=== PATIENT | male | born 1990 | race African-American/Black ===

== ENCOUNTER 2021-03-16 10:10 | Inpatient (IN) | payer MEDICAID, OTHER ==
--- NOTE | 2021-03-16 10:52 | ED ---
General Adult HPI - General Chief complaint: Psychiatric Symptoms Stated complaint: mental health Time Seen by Provider: 03/16/21 10:41 Source: EMS Mode of arrival: EMS Limitations: no limitations - History of Present Illness Initial comments: Dictation was produced using [employer] dictation software. please excuse any grammatical, word or spelling errors. Chief Complaint: 30-year-old male presents emergency Department with law enforcement for paranoid behavior History of Present Illness: 30-year-old male who denies any past medical history. He is brought in by law enforcement. Patient allegedly called 911 for concerns of spice in his house. Lungs enforcement agent went to the house to check if there is any suspicious activity did not notice it. Patient explained that he was being spied on. Enforcement ended up bring patient to the emergency room for psychiatric evaluation. Enforcement reports that patient was not coop erative and needed to be coarse to come to the emergency department. Patient states he feels fine and denies any suicidal or homicidal ideation. He does feel like there are people out to get him. The ROS documented in this emergency department record has been reviewed and confirmed by me. Those systems with pertinent positive or negative responses have been documented in the HPI. All other systems are other negative and/or noncontributory. PHYSICAL EXAM: General Impression: Alert and oriented x3, not in acute distress HEENT: Normocephalic atraumatic, extra-ocular movements intact, pupils equal and reactive to light bilaterally, mucous membranes moist. Cardiovascular: Heart regular rate and rhythm Chest: Able to complete full sentences, no retractions, no tachypnea Abdomen: abdomen soft, non-tender, non-distended, no organomegaly Musculoskeletal: Pulses present and equal in all extremities, no peripheral edema Motor: no focal deficits noted Neurological: CN II-XII grossly intact, no focal motor or sensory deficits noted Skin: Intact with no visualized rashes Psych: Normal affect and mood ED course: 30-year-old male brought into the emergency department for paranoid ideation. Vital signs upon arrival are within acceptable limits. Patient vital by EPS and mobile crisis recommend psychiatric inpatient admission. Certification documentation was completed. Patient be admitted to 3 W. - Related Data Home Medications Medication Instructions Recorded Confirmed No Known Home Medications 03/16/21 03/16/21 Allergies Allergy/AdvReac Type Severity Reaction Status Date / Time No Known Allergies Allergy Verified 03/16/21 14:19 Review of Systems ROS Statement: Those systems with pertinent positive or pertinent negative responses have been documented in the HPI. ROS Other: All systems not noted in ROS Statement are negative. Past Medical History Past Medical History: No Reported History Past Surgical History: Orthopedic Surgery Past Psychological History: No Psychological Hx Reported Smoking Status: Current some day smoker Past Alcohol Use History: None Reported Past Drug Use History: Marijuana General Exam Limitations: no limitations Course Vital Signs 03/16/21 10:32 Temperature 98.1 F Pulse Rate 86 Respiratory 16 Rate Blood Pressure 123/84 O2 Sat by Pulse 97 Oximetry Procedures - Restraint - Face to Face Restraint Occurrence 1 Patient's Immediate Situation: Endangers self safety, Endangers others' safety, Endangers staff safety Patient's Reaction to the Intervention: Apprehensive Patient's Medical & Behavioral Condition: Awake, Alert, Follows directions Need to Continue or Terminate Restraint or Seclusion: Continue Face to Face Eval of Restraint Date: 03/16/21 Face to Face Eval of Restraint Time: 10:35 Medical Decision Making - Lab Data Lab Results 03/16/21 Range/Units 14:11 Urine RBC 2 (0-5) /hpf Urine WBC 2 (0-5) /hpf Ur Squamous Epith Cells 3 (0-4) /hpf Urine Mucus Many H (None) /hpf Urine Opiates Screen Not Detected (NotDetected) Ur Oxycodone Screen Detected H (NotDetected) Urine Methadone Screen Not Detected (NotDetected) Ur Propoxyphene Screen Not Detected (NotDetected) Ur Barbiturates Screen Not Detected (NotDetected) U Tricyclic Antidepress Not Detected (NotDetected) Ur Phencyclidine Scrn Not Detected (NotDetected) Ur Amphetamines Screen Detected H (NotDetected) U Methamphetamines Scrn Detected H (NotDetected) U Benzodiazepines Scrn Not Detected (NotDetected) Urine Cocaine Screen Detected H (NotDetected) U Marijuana (THC) Screen Detected H (NotDetected) Disposition Clinical Impression: Psychosis Disposition: ADMITTED IP TO THIS [facility] Condition: Fair Referrals: None,Stated [Primary Care Provider] - 1-2 days
[2021-03-16] MEDS ORDERED: LORazepam 2 MG/ML INJ IM STA (14:44)
[2021-03-16 14:45] LABS: Mucus,Urine Many /hpf; RBC,Urine 2 /hpf (0-5); Squamous Epithelial Cell,Urine 3 /hpf (0-4); WBC,Urine 2 /hpf (0-5)
[2021-03-16] MEDS ORDERED: NICOTINE 21MG/24HR PATCH TRANSDERM STA (14:45)
[2021-03-16 14:46] LABS: Amphetamine Screen,Urine Detected (NotDetected); Barbiturate Screen,Urine Not Detected (NotDetected); Benzodiazepines Screen,Urine Not Detected (NotDetected); Cocaine Screen,Urine Detected (NotDetected); Methadone Screen, Urine Not Detected (NotDetected); Opiate Screen,Urine Not Detected (NotDetected); Oxycodone Screen, Urine Detected (NotDetected); Phencyclidine Screen,Urine Not Detected (NotDetected); Tricyclic Antidepressant,Urine Not Detected (NotDetected); Urn Cannabinoid Scrn Detected (NotDetected)
[2021-03-16 14:58] LABS: Appearance,Urine Cloudy (Clear); Bilirubin,Urine Negative (Negative); Blood,Urine Negative (Negative); Color,Urine Yellow; Glucose,Urine (UA) Negative (Negative); Ketones,Urine Negative (Negative); Leukocyte Esterase,Urine Negative (Negative); Nitrite,Urine Negative (Negative); Protein,Urine 1+ (Negative); Specific Gravity,Urine 1.039 (1.001-1.035)
[2021-03-16] MEDS ORDERED: MAGNESIUM HYDROXIDE 2,400 MG/10 ML CUP PO PRN (16:40)
[2021-03-16] MEDS ORDERED: ACETAMINOPHEN TAB 325 MG TAB PO PRN (16:40)
[2021-03-16] MEDS ORDERED: LORazepam 1 MG TAB PO PRN (16:40)
[2021-03-16] MEDS ORDERED: MAG HYDROX/AL HYDROX/SIMETH 30 ML CUP PO PRN (16:40)
[2021-03-16] MEDS ORDERED: haloperidoL 5 MG TAB PO PRN (16:41)
[2021-03-16] MEDS: LORazepam 2 MG/ML INJ IM PRN (17:34)
[2021-03-16] MEDS: HALOPERIDOL LACTATE 5 MG/ML 1 ML VIAL IM PRN (17:35)
[2021-03-16] MEDS: NICOTINE 21MG/24HR PATCH TRANSDERM SCH (17:55)
--- NOTE | 2021-03-16 22:01 | P.PN ---
Progress Note - Text Progress Note Date: 03/16/21 The patient couldn't be evaluated as he was sedated. Will attempt again tomorrow.
[2021-03-17] MEDS: NICOTINE 21MG/24HR PATCH TRANSDERM SCH (08:48)
[2021-03-17] MEDS: LORazepam 2 MG/ML INJ IM PRN (10:33)
[2021-03-17] MEDS: HALOPERIDOL LACTATE 5 MG/ML 1 ML VIAL IM PRN (10:33)
[2021-03-17] MEDS ORDERED: LORazepam 1 MG TAB PO SCH (13:00)
[2021-03-17] MEDS ORDERED: haloperidoL 5 MG TAB PO SCH (13:00)
[2021-03-17] MEDS ORDERED: HALOPERIDOL LACTATE 5 MG/ML 1 ML VIAL IM SCH (13:00)
[2021-03-17] MEDS ORDERED: LORazepam 2 MG/ML INJ IM SCH (13:00)
[2021-03-17] MEDS ORDERED: HALOPERIDOL LACTATE 5 MG/ML 1 ML VIAL IM PRN ×2 (13:12→14:07)
[2021-03-17] MEDS ORDERED: LORazepam 1 MG TAB PO PRN ×2 (13:12→14:08)
[2021-03-17] MEDS ORDERED: haloperidoL 5 MG TAB PO PRN (13:12)
[2021-03-17] MEDS ORDERED: LORazepam 2 MG/ML INJ IM PRN ×2 (13:12→14:08)
--- NOTE | 2021-03-17 13:28 | P.HP ---
Psychiatric H&P - . H&P Date: 03/17/21 History & Physical: Allergies Allergy/AdvReac Type Severity Reaction Status Date / Time No Known Allergies Allergy Verified 03/16/21 14:19 Vital Signs Temp 98.1 F 03/16/21 10:32 Pulse 86 03/16/21 10:32 Resp 16 03/16/21 10:32 BP 123/84 03/16/21 10:32 Pulse Ox 97 03/16/21 10:32 Intake & Output 03/16/21 03/17/21 03/17/21 18:59 06:59 18:59 Weight 83.915 kg Laboratory Last Values Urine Color Yellow 03/16/21 14:11 Urine Appearance Cloudy (Clear) 03/16/21 14:11 Urine pH 6.0 (5.0-8.0) 03/16/21 14:11 Ur Specific [place] 1.039 (1.001-1.035) H 03/16/21 14:11 Urine Protein 1+ (Negative) H 03/16/21 14:11 Ur Protein Confirm Not Reportable 03/16/21 14:11 Urine Glucose (UA) Negative (Negative) 03/16/21 14:11 Urine Ketones Negative (Negative) 03/16/21 14:11 Urine Blood Negative (Negative) 03/16/21 14:11 Urine Nitrite Negative (Negative) 03/16/21 14:11 Urine Bilirubin Negative (Negative) 03/16/21 14:11 Ur Bilirubin Confirm Not Reportable 03/16/21 14:11 Urine Urobilinogen 4.0 mg/dL (<2.0) 03/16/21 14:11 Ur Leukocyte Esterase Negative (Negative) 03/16/21 14:11 Urine RBC 2 /hpf (0-5) 03/16/21 14:11 Urine WBC 2 /hpf (0-5) 03/16/21 14:11 Ur Squamous Epith Cells 3 /hpf (0-4) 03/16/21 14:11 Urine Mucus Many /hpf (None) H 03/16/21 14:11 Urine Opiates Screen Not Detected (NotDetected) 03/16/21 14:11 Ur Oxycodone Screen Detected (NotDetected) H 03/16/21 14:11 Urine Methadone Screen Not Detected (NotDetected) 03/16/21 14:11 Ur Propoxyphene Screen Not Detected (NotDetected) 03/16/21 14:11 Ur Barbiturates Screen Not Detected (NotDetected) 03/16/21 14:11 U Tricyclic Antidepress Not Detected (NotDetected) 03/16/21 14:11 Ur Phencyclidine Scrn Not Detected (NotDetected) 03/16/21 14:11 Ur Amphetamines Screen Detected (NotDetected) H 03/16/21 14:11 U Methamphetamines Scrn Detected (NotDetected) H 03/16/21 14:11 U Benzodiazepines Scrn Not Detected (NotDetected) 03/16/21 14:11 Urine Cocaine Screen Detected (NotDetected) H 03/16/21 14:11 U Marijuana (THC) Screen Detected (NotDetected) H 03/16/21 14:11 Coronavirus (PCR) Not Detected (Not Detectd) 03/16/21 14:45 03/17/21 13:27 IDENTIFYING DATA: Patient is a , unemployed, 30-year-old -[place] male who was admitted to the psychiatric unit under petition and certificate for psychosis. HPI: Patient presented to the hospital on 03/16/20 on presentation emergency department, the patient was presenting as hyperverbal and tangential to the EPS nurse. He reported "I learned about some new tech and I compared to the stuff in my home and it matched." The patient expressed significant concern that there is surveillance equipment in his home that are spying on him. The petition was filled out by a transit authority police officer who wrote "patient has complained for multiple days that his house is bugged with radio transmitters, cameras, and various monitoring devices." Initial clinical certificate was filled out in the emergency department as the patient continued to display significant symptoms of paranoia. Upon evaluation the psychiatric unit, the patient continues to endorse significant symptoms of psychosis. He reports that he is extremely concerned about the surveillance equipment as well as being spied on in his new home. He reports that there are screws and switches on the valladares that are actually surveillance equipment. The patient is expressing a strong desire for discharge and is initially hesitant to receive any medications. He became very agitated after attempting to elope the unit and a Mr. winchester was called. Patient was able to de-escalate and was agreeable to taking IM Haldol and Ativan to calm down. Since then, the patient has been sedated and sleeping in his room. Collateral information was provided by the patient's Izzy after the patient signed a release of information for her. Izzy reports that the patient began experiencing psychotic symptoms since this past Monday. She reports that this is a new behavior and new presentation for this patient. She states that he has otherwise not expressed any significant psychiatric pathology. She reports that he has never been presenting as depressed, bipolar, or psychotic in the past. She does report that he has a history of posttraumatic stress disorder after being incarcerated in the past. She does express that the patient has engaged in marijuana use but is uncertain of any other drug use. Review of the patient's chart reveals that the patient has tested positive for multiple substances including oxycodone, methamphetamines, amphetamines, cocaine, and marijuana. Upon discussion with the patient earlier this morning, he denied any methamphetamine or amphetamine use. He did admit to using cocaine and marijuana only. PAST PSYCHIATRIC HISTORY: Patient and both report that the patient has no significant psychiatric history except for PTSD. Patient denies any previous psychiatric medications. Patient denies any previous psychiatric hospitalizations. Patient denies any psychiatric outpatient follow-up. Patient denies any history of suicide attempts in the past. PMH: Past Medical History: No Reported History Past Surgical History: Orthopedic Surgery Past Psychological History: No Psychological Hx Reported Smoking Status: Current some day smoker Past Alcohol Use History: None Reported Past Drug Use History: Marijuana ALLERGIES: NO KNOWN DRUG ALLERGIES CHEMICAL DEPENDENCY HISTORY: UDS was positive for oxycodone, amphetamines, methamphetamine, cocaine, and marijuana. Patient admits to marijuana and cocaine use. He does not report any other drug use. FAMILY PSYCHIATRIC/SUBSTANCE USE HISTORY: No reported family psychiatric history. SOCIAL HISTORY: Patient is currently employed and works at his 's business. He is currently ever since 2018 to his Izzy, and has 5 stepchildren. He currently lives with his . He was born and raised in [place] [facility]. MENTAL STATUS EXAM: General Appearance: Patient appears to be stated age is alert, directable, and intermittently cooperative. Patient appears to have with fair hygiene and grooming. Thin build with multiple tattoos. Behavior: Patient presents with elevated psychomotor activity. Eye contact is appropriate. Speech: Patient's speech is rapid in rate but with otherwise normal volume and tone. Mood/Affect: Patient reports their mood is "I'm not mentally ill." Affect is scared and desperate. Suicidality/Homicidality: Patient denies any suicidal or homicidal ideation, intention, and/or plan. Perceptions: Patient denies any visual hallucinations and denies any auditory hallucinations Though content/process: The patient endorses significant delusional thoughts of paranoia and surveillance. Thought process with loose associations but is otherwise linear and goal-directed. Memory and concentration: AOX3, grossly intact for the purposes of this session. Can spell "WORLD" backwards Judgment and insight: poor STRENGTHS/WEAKNESSES: Strength is that the patient has a supportive family and is in relatively good health with no significant psychiatric history prior to this admission. Furthermore, the patient's psychotic symptoms are very acute in onset and likely secondary to substance abuse and not underlying schizophrenia/schizoaffective disorder. Weakness is that patient engages in polysubstance abuse. INTELLECT: average IMPRESSIONS: Acute psychosis Cannabis use disorder Cocaine use disorder PLAN: -Patient is admitted under involuntary status to MHU for stabilization of psychiatric symptoms and safety. Patient is too sedated at this time to engage in discussion over voluntary admission. We will offer voluntary admission once the patient is more arousable this evening. If he refuses to sign, a second certification was completed and along with petition will be filed for court. -Medications : Will start patient on Risperdal 1 mg by mouth twice a day for management of psychosis. -Ativan and Haldol PRN for agitation/aggression. We will decrease to 3 mg Haldol and 1 mg ativan due to concerns for oversedation. -Patient was counselled on substance abuse and desired to cut back on use -Patient was informed of the risks, benefits and side effects of the medication. -NRT - nicotine patch -SW on board for discharge planning. Encourage patient to participate in groups to work on coping skills. 03/17/21 13:28 03/17/21 14:09
[2021-03-17] MEDS ORDERED: haloperidoL 1 MG TAB PO PRN (14:07)
[2021-03-17] MEDS: risperiDONE 1 MG TAB PO SCH (22:04)
--- NOTE | 2021-03-18 02:01 | P.PN ---
Progress Note - Text Progress Note Date: 03/18/21 The patient refused to answer questions or be examined. Will attempt again tomorrow.
[2021-03-18] MEDS: NICOTINE 21MG/24HR PATCH TRANSDERM SCH (07:55)
[2021-03-18] MEDS: risperiDONE 1 MG TAB PO SCH (07:58)
--- NOTE | 2021-03-18 10:05 | P.PN ---
Progress Note - Text Progress Note Date: 03/18/21 Interval History: Patient was seen resting in bed and was directable and agreeable to speak with the job specification writer. Family, the patient is expressing that he is feeling better. He is currently reporting that he just feels tired. He is not reporting any suicidal or homicidal ideation, intention, and/or plan. He is not reporting any auditory or visual hallucinations. The patient is not expressing any paranoia or concern today. He has been adherent with his medications and is not reporting any significant side effects at this time. The patient does admit to drug use prior to this admission and acknowledges that he needs to stop drugs in order to prevent psychotic episodes such as this. He is agreeable to staying for another day. He reports that he spoke with his during visiting hours yesterday and things went well. Mental Status Exam: General Appearance: Patient appears to be stated age is alert, directable, and cooperative. Behavior: Patient is calmly lying down in bed without any agitated behavior. Speech: Patient's speech is fluent and nonpressured. Nonspontaneous. Low in volume. Mood/Affect: Mood is improving mildly, affect is congruent and constricted. Slightly somnolent. Suicidality/Homicidality: Patient denies having any suicidal or homicidal ideation intent or plan. Perceptions: Patient denies any visual hallucinations and denies any auditory hallucinations Though content/process: There is no evidence of any delusional thought content and thought process is linear and goal-directed. Memory and concentration: AOX3, grossly intact for the purposes of this session Judgment and insight: Improving mildly Vital Signs Temp 98.1 F 03/16/21 10:32 Pulse 86 03/16/21 10:32 Resp 16 03/16/21 10:32 BP 123/84 03/16/21 10:32 Pulse Ox 97 03/16/21 10:32 Assessment Acute psychosis Cannabis use disorder Cocaine use disorder Rule out methamphetamine abuse Plan: -Patient continues to meet criteria for inpatient psychiatric admission for symptom stabilization and safety. Patient has signed adult voluntary form and medication consent and was placed in patient's chart. -Medications: Due to concerns for over sedation, we will decrease Risperdal to 0.5 mg by mouth twice a day for management of psychosis. -When necessary Ativan and Haldol for agitation/aggression. -NRT - nicotine patch -SW on board for discharge planning. Encouraged the patient to participate in milieu.
[2021-03-18] MEDS: risperiDONE 0.5 MG TAB PO SCH (17:09)
[2021-03-18] MEDS ORDERED: diphenhydrAMINE 25 MG CAP PO STA (17:18)
[2021-03-19 06:41] VITALS: BP 109/65; PULSE 82; RESP 15; TEMP 98.2
[2021-03-19] MEDS: risperiDONE 0.5 MG TAB PO SCH (08:54)
[2021-03-19] MEDS: NICOTINE 21MG/24HR PATCH TRANSDERM SCH (08:55)
--- NOTE | 2021-03-19 10:57 | P.DS ---
Providers Date of admission: 03/16/21 16:33 Expected date of discharge: 03/19/21 Attending physician: Clark Heath MD Consults: 03/16/21 16:40 Consult Physician Routine Consulting Provider: Shorty Physician Consult Reason/Comments: H&P and medical Do you want consulting provider notified?: Yes Primary care physician: Stated None - Discharge Diagnosis(es) (1) Acute psychosis Current Visit: Yes Status: Acute Priority: High (2) Cannabis abuse Current Visit: Yes Status: Chronic Priority: Medium (3) Cocaine use disorder Current Visit: Yes Status: Chronic Priority: Medium Hospital Course: Admission HPI: Patient is a , unemployed, 30-year-old -[place]ian male who was admitted to the psychiatric unit under petition and certificate for psychosis. Patient presented to the hospital on 03/16/20 on presentation emergency department, the patient was presenting as hyperverbal and tangential to the EPS nurse. He reported "I learned about some new tech and I compared to the stuff in my home and it matched." The patient expressed significant concern that there is surveillance equipment in his home that are spying on him. The petition was filled out by a mounted police officer who wrote "patient has complained for multiple days that his house is bugged with radio transmitters, cameras, and various monitoring devices." Initial clinical certificate was filled out in the emergency department as the patient continued to display significant symptoms of paranoia. Upon evaluation the psychiatric unit, the patient continues to endorse significant symptoms of psychosis. He reports that he is extremely concerned about the surveillance equipment as well as being spied on in his new home. He reports that there are screws and switches on the valladares that are actually surveillance equipment. The patient is expressing a strong desire for discharge and is initially hesitant to receive any medications. He became very agitated after attempting to elope the unit and a Mr. winchester was called. Patient was able to de-escalate and was agreeable to taking IM Haldol and Ativan to calm down. Since then, the patient has been sedated and sleeping in his room. Collateral information was provided by the patient's Izzy after the patient signed a release of information for her. Izzy reports that the patient began experiencing psychotic symptoms since this past Monday. She reports that this is a new behavior and new presentation for this patient. She states that he has otherwise not expressed any significant psychiatric pathology. She reports that he has never been presenting as depressed, bipolar, or psychotic in the past. She does report that he has a history of posttraumatic stress disorder after being incarcerated in the past. She does express that the patient has engaged in marijuana use but is uncertain of any other drug use. Review of the patient's chart reveals that the patient has tested positive for multiple substances including oxycodone, methamphetamines, amphetamines, cocaine, and marijuana. Upon discussion with the patient earlier this morning, he denied any methamphetamine or amphetamine use. He did admit to using cocaine and marijuana only. Patient and both report that the patient has no significant psychiatric history except for PTSD. Patient denies any previous psychiatric medications. Patient denies any previous psychiatric hospitalizations. Patient denies any psychiatric outpatient follow-up. Patient denies any history of suicide attempts in the past. Hospital course: Upon admission to the unit patient was initially presenting as paranoid, afraid, and confrontational. Patient was however directable and agreeable to commence treatment. Patient got along well with other patients on the unit and followed unit protocol. Patient was compliant with the medications and denied any side effects throughout hospital course. Patient required a Mr. winchester response (staff safety response with a show of force). He eventually calmed down and was agreeable to taking the Haldol and Ativan. Patient subsequently calmed down. The patient was quite sedated from the administration of Haldol and Ativan. He did sign voluntarily into the psychiatric unit. He was started on a regimen of Risperdal 1 mg by mouth twice a day for management of psychosis. Over the course the hospital physician, the patient continued to be quite sedated with his medication regimen of Risperdal and Haldol and Ativan as needed. These medications were tapered in response to his sedation. The patient displayed significant improvement in regards to his psychotic symptoms and became more cooperative with staff and was much more friendly on approach. The patient was adherent with his medications and reported some heaviness of the tongue which disappeared after the Risperdal was tapered. On the day of discharge, the patient is not reporting any suicidal or homicidal ideation, intention, and/or plan. He is not reporting any auditory or visual hallucinations. He is denying any paranoia or other delusions. The patient is adherent with his medications and not reporting any significant side effects at this time. The patient acknowledges that substances may have contributed to his psychotic symptoms and was advised to abstain from all substances including alcohol, marijuana, and other illicit drugs including meth amphetamines, cocaine, and opiates. The patient was offered inpatient substance abuse rehabilitation however he declined. The patient denies any access to firearms or other weapons. The patient was counseled on the medications and the need for regular adherence as well as to follow-up with his outpatient appointments. Prior to discharge, family meeting will be arranged by social media sr strategy manager to answer questions and ensure safety. Mental status exam: General Appearance: Patient appears to be stated age is alert, pleasant, and cooperative. Patient is in no acute distress and has fair hygiene and grooming Behavior: Patient is calmly seated without any agitated behavior. Speech: Patient's speech is fluent and nonpressured. Mood/Affect: Patient reports their mood is "much better", affect is congruent and euthymic to bright. Suicidality/Homicidality: Patient denies having any suicidal or homicidal ideation intent or plan. Perceptions: Patient denies any auditory or visual hallucinations. Though content/process: There is no evidence of any delusional thought content and thought process is linear and goal-directed. Future oriented Memory and concentration: AOX3, grossly intact for the purposes of this session. Can spell "WORLD" backwards correctly. Judgment and insight: Improved with guarded prognosis Vital Signs Temp 98.2 F 03/19/21 06:38 Pulse 82 03/19/21 06:38 Resp 15 03/19/21 06:38 BP 109/65 03/19/21 06:38 Pulse Ox 97 03/16/21 10:32 Impression: Acute psychotic episode Cannabis use disorder Cocaine use disorder Plan: -Continue with discharge today as patient has improved and stabilized psychiatrically and is not currently an imminent threat to himself and/or others. Patient will remain at chronically elevated risk for harm to self and/or others due to his polysubstance abuse. -Continue medications: Risperdal 0.5 mg by mouth at bedtime for mood stabilization/psychosis -Patient was counseled on the need for medication compliance and appropriate follow-up at mental health and also primary care for medical issues. Patient verbalized understanding and agreed. -Social work to arrange for and conduct family meeting to ensure safety upon discharge and answer any questions/concerns. Social work also to arrange for patients follow [facility] along with follow up with primary care provider. -Patient counseled on abstaining from recreational drugs and marijuana and alcohol. Was informed/educated on the adverse effects on their physical and mental health. Patient verbally agreed and understood. Patient was offered substance abuse treatment however declined at this time. -Patient was instructed to return to the hospital or seek immediate medical care if their psychiatric or medical symptoms do worsen or reoccur. -Psychoeducation and supportive therapy provided to patient. Risks and benefits of pharmacological treatment versus the risks and benefits of nontreatment weight and discussed. Informed consent discussion held. Common side effects of psychotropics discussed such as, but not limited to headache, GI disturbance, sexual dysfunction, movement disorders, sedation, and orthostatic hypotension. Life threatening and blackbox warnings of prescribed medications also discussed. Potential risks of operating a vehicle or heavy machinery discussed with patient at length. Advised on importance of compliance and a reliable and responsible manner. Patient advised to review FDA consumer labeling of all medications prior to taking. Patient verbalized understanding of potential risks, and agrees with current treatment plan. Patient advised to medically contact physician/emergency personnel if any acute changes in condition occur. Laboratory Results Urine Color Yellow 03/16/21 14:11 Urine Appearance Cloudy (Clear) 03/16/21 14:11 Urine pH 6.0 (5.0-8.0) 03/16/21 14:11 Ur Specific [place] 1.039 (1.001-1.035) H 03/16/21 14:11 Urine Protein 1+ (Negative) H 03/16/21 14:11 Ur Protein Confirm Not Reportable 03/16/21 14:11 Urine Glucose (UA) Negative (Negative) 03/16/21 14:11 Urine Ketones Negative (Negative) 03/16/21 14:11 Urine Blood Negative (Negative) 03/16/21 14:11 Urine Nitrite Negative (Negative) 03/16/21 14:11 Urine Bilirubin Negative (Negative) 03/16/21 14:11 Ur Bilirubin Confirm Not Reportable 03/16/21 14:11 Urine Urobilinogen 4.0 mg/dL (<2.0) 03/16/21 14:11 Ur Leukocyte Esterase Negative (Negative) 03/16/21 14:11 Urine RBC 2 /hpf (0-5) 03/16/21 14:11 Urine WBC 2 /hpf (0-5) 03/16/21 14:11 Ur Squamous Epith Cells 3 /hpf (0-4) 03/16/21 14:11 Urine Mucus Many /hpf (None) H 03/16/21 14:11 Urine Opiates Screen Not Detected (NotDetected) 03/16/21 14:11 Ur Oxycodone Screen Detected (NotDetected) H 03/16/21 14:11 Urine Methadone Screen Not Detected (NotDetected) 03/16/21 14:11 Ur Propoxyphene Screen Not Detected (NotDetected) 03/16/21 14:11 Ur Barbiturates Screen Not Detected (NotDetected) 03/16/21 14:11 U Tricyclic Antidepress Not Detected (NotDetected) 03/16/21 14:11 Ur Phencyclidine Scrn Not Detected (NotDetected) 03/16/21 14:11 Ur Amphetamines Screen Detected (NotDetected) H 03/16/21 14:11 U Methamphetamines Scrn Detected (NotDetected) H 03/16/21 14:11 U Benzodiazepines Scrn Not Detected (NotDetected) 03/16/21 14:11 Urine Cocaine Screen Detected (NotDetected) H 03/16/21 14:11 U Marijuana (THC) Screen Detected (NotDetected) H 03/16/21 14:11 Coronavirus (PCR) Not Detected (Not Detectd) 03/16/21 14:45 Allergies Allergy/AdvReac Type Severity Reaction Status Date / Time No Known Allergies Allergy Verified 03/16/21 14:19 Patient Condition at Discharge: Stable Plan - Discharge Summary New Discharge Prescriptions: New risperiDONE [RisperDAL] 0.5 mg PO HS #30 tab Discharge Medication List risperiDONE [RisperDAL] 0.5 mg PO HS #30 tab 03/19/21 [Rx] Follow up Appointment(s)/Referral(s): [facility] - [facility]29/21 11:30 am (Roshni Thompson) [facility] [NON-STAFF] - 1 Week Patient Instructions/Handouts: How to Stop Smoking (DC), Psychotic Disorder (DC) Activity/Diet/Wound Care/Special Instructions: Activity and diet as tolerated. Avoid the use of street drugs and alcohol. Take all medications as prescribed. When you are in need of refills on your medi cations please contact your medical provider and/or outpatient psychiatrist to have this done. Please go to scheduled outpatient appointment for aftercare treatment. If symptoms return or become worse, call the crisis line at and/or go to the nearest emergency room for evaluation. Discharge Disposition: HOME SELF-CARE
== END 2021-03-19 10:55 | disposition home or self-care (01) | DRG 885 ==
LOC: EC 10:10 → 3MHU 16:33
PROVIDERS: ADMIT Psychiatry & Neurology Psychiatry; ATTEND Psychiatry & Neurology Psychiatry
DX: F23 Brief psychotic disorder (principal); R45.851 Suicidal ideations; F15.10 Other stimulant abuse, uncomplicated; F12.10 Cannabis abuse, uncomplicated; F11.10 Opioid abuse, uncomplicated; Z20.822 Contact with and (suspected) exposure to COVID-19; Z71.51 Drug abuse counseling and surveillance of drug abuser; F14.10 Cocaine abuse, uncomplicated; F17.210 Nicotine dependence, cigarettes, uncomplicated; F43.10 Post-traumatic stress disorder, unspecified; F60.0 Paranoid personality disorder; Z79.899 Other long term (current) drug therapy
CPT/HCPCS: 80306; 81001; 82075; 87635; 99285